=== PATIENT | female | born 1950 ===

== ENCOUNTER → 2021-01-27 | Day surgery (SDC) | payer OTHER ==
[~2021-01-27] MED LIST: C COMPLEX500 MG PO; DICLOFENAC SODI75 MG PO; FLAX OIL1000 MG PO; MULTI VITAMIN1 EACH PO; PANTOPRAZOLE SO20 MG PO; PEPCID AC20 MG PO; PERCOCET 5-3251 EACH PO; PROBIOTIC1 EAC2 PO; ZOFRAN4 MG PO
== END | disposition home or self-care (01) ==
LOC: ADM 01-22 10:30 → CIR.AMB 06:29
PROVIDERS: ATTEND Surgery
DX: K80.10 Calculus of gallbladder with chronic cholecystitis without obstruction (principal); Z20.822 Contact with and (suspected) exposure to COVID-19